=== PATIENT | male | born 1980 | race Two or more races ===

== ENCOUNTER 2023-09-25 21:34 | Emergency (ER) | payer OTHER, BC, SELFPAY ==
[2023-09-25] VITALS (17 sets, daily range): BP systolic 118–142; BP diastolic 63–92; PULSE 59–83; RESP 14–25; TEMP 36.8; O2SAT 93–99; BMI 30.7
--- NOTE | 2023-09-25 22:12 | ED_ITS ---
HPI - Chest Pain General Chief Complaint: Chest Pain Stated Complaint: Chest Pain Abdominal Pain Time Seen by Provider: 09/25/23 22:09 Source: patient Mode of arrival: walk-in Limitations: no limitations History of Present Illness HPI narrative: patient presents complaining of LUE/chest pain on and off for the past week. pain again tonight associated with diaphoresis and nausea. pain worsens when he sits up. Daily smoker Related Data Home Medications Medication Instructions Recorded Confirmed pantoprazole 40 mg tablet,delayed 40 mg PO DAILY 09/25/23 09/25/23 release Allergies Allergy/AdvReac Type Severity Reaction Status Date / Time No Known Drug Allergies Allergy Verified 09/25/23 21:45 Review of Systems ROS Status of ROS 10 or more systems reviewed and unremarkable except as noted in history and below [facility] Social History Smoking status: Current every day smoker Exam Constitutional Vital Signs, click to edit/add: Last Vital Signs Temp 98.2 F 09/25/23 21:37 Pulse 57 L 09/26/23 01:31 Resp 16 09/26/23 01:31 BP 137/78 09/26/23 01:31 Pulse Ox 99 09/26/23 01:31 O2 Del Method Room Air 09/25/23 21:37 Common normals: no apparent distress, average body habitus, oriented x3, no limitations, healthy appearing, alert and well nourished Eye Common normals: EOMs intact bilaterally and conjunctivae normal Neck & C-Spine Common normals: full ROM Respiratory Common normals: normal respiratory effort, no retractions, no use of accessory muscles and clear to auscultation bilaterally Cardio Common normals: regular rate, regular rhythm, S1 normal heart sound and S2 normal heart sound GI Other: mild left upper quad tenderness pain increases when he rises from supine to sitting position Extremity Common normals: normal to inspection and full ROM Neuro Common normals: oriented x3, CN's II-XII intact bilaterally, moves all extremities, no focal motor deficits and no sensory deficits noted Psych Appearance: grossly normal Course Vital Signs Vital signs: Vital Signs Temperature 98.2 F 09/25/23 21:37 Pulse Rate 80 09/25/23 21:37 Respiratory Rate 18 09/25/23 21:37 Blood Pressure 142/92 H 09/25/23 21:37 Pulse Oximetry 97 09/25/23 21:37 Oxygen Delivery Method Room Air 09/25/23 21:37 Temperature 98.2 F 09/25/23 21:37 Pulse Rate 57 L 09/26/23 01:31 Respiratory Rate 16 09/26/23 01:31 Blood Pressure 137/78 09/26/23 01:31 Pulse Oximetry 99 09/26/23 01:31 Oxygen Delivery Method Room Air 09/25/23 21:37 MDM - Chest Pain MDM Narrative Medical decision making narrative: patient presents complaining of recurrent episodes of LUQ/ left chest pain for the past week. Again today but this time associated with diaphoresis and nausea. Pain improved and finally resolved while in the department. Workup neg including neg d-dimer, serial troponin and CT abdomen. Patient informed of the plan for obs admission to continue workup as this could be his heart but he did not want to stay and wanted to follow up with his PCP Lab Data Labs: Lab Results 09/25/23 09/25/23 09/26/23 Range/Units 00:45 21:50 01:01 WBC 7.2 (4.0-11.0) 10^3/uL RBC 4.04 L (4.70-6.10) 10^6/uL Hgb 12.6 L (14.0-18.0) g/dL Hct 38.8 L (42.0-54.0) % MCV 96.0 H (80.0-94.0) fL MCH 31.2 (25.9-34.0) pg MCHC 32.5 (29.9-35.2) g/dL RDW 12.8 (11.0-15.0) % Plt Count 227 (150-450) 10^3/uL MPV 10.2 (9.5-13.5) fL Neut % (Auto) 69.3 (43.0-75.0) % Lymph % (Auto) 18.7 L (20.5-60.0) % Patrick % (Auto) 9.1 (1.7-12.0) % Eos % (Auto) 1.9 (0.9-7.0) % Baso % (Auto) 0.7 (0.2-2.0) % Neut # (Auto) 5.0 (1.4-6.5) 10^3/uL Lymph # (Auto) 1.3 (1.2-3.8) 10^3/uL Patrick # (Auto) 0.7 (0.3-0.8) 10^3/uL Eos # (Auto) 0.1 (0.0-0.7) 10^3/uL Baso # (Auto) 0.1 (0.0-0.1) 10^3/uL Abs Immat Gran (auto) 0.02 (0.00-0.03) 10^3/uL Imm/Tot Granulo (auto) 0.3 (0.0-0.5) % D-Dimer 0.21 (<=0.59) mg/L FEU Sodium 141 (136-145) mmol/L Potassium 3.6 (3.5-5.1) mmol/L Chloride 107 (98-107) mmol/L Carbon Dioxide 25.7 (21.0-32.0) mmol/L Anion Gap 11.9 BUN 19.0 H (7.0-18.0) mg/dL Creatinine 1.37 H (0.70-1.30) mg/dL Est GFR ( Amer) >60 (>=60) Est GFR (Non-Af Amer) 56 L (>=60) BUN/Creatinine Ratio 13.9 Glucose 99 (74-106) mg/dL Lactate 0.9 (0.4-2.0) mmol/L Calcium 8.7 (8.5-10.1) mg/dL Total Bilirubin 0.6 (0.2-1.0) mg/dL AST 31 (15-37) U/L ALT 40 (16-63) U/L Alkaline Phosphatase 65 (46-116) U/L Troponin I High Sens 7.5 8.2 (4.0-76.1) pg/mL Total Protein 7.0 (6.4-8.2) g/dL Albumin 3.8 (3.4-5.0) g/dL Globulin 3.2 g/dL Albumin/Globulin Ratio 1.2 Lipase 53.0 (16.0-77.0) U/L Urine Color Lt. yellow (YELLOW) Urine Clarity Clear (CLEAR) Urine pH 6.0 (5.0-9.0) Ur Specific [place] 1.015 (1.005-1.025) Urine Protein Negative (NEG/TRACE) mg/dL Urine Glucose (UA) Negative (NEGATIVE) mg/dL Urine Ketones Negative (NEGATIVE) mg/dL Urine Occult Blood Negative (NEGATIVE) Urine Nitrite Negative (NEGATIVE) Urine Bilirubin Negative (NEGATIVE) Urine Urobilinogen 1.0 (0.2-1.0) EU/dL Ur Leukocyte Esterase Negative (NEGATIVE) Discharge Plan Discharge Chief Complaint: Chest Pain Clinical Impression: Atypical chest pain, Abdominal pain Patient Disposition: Home, Self-Care Prescriptions / Home Meds: No Action pantoprazole 40 mg tablet,delayed release (DR/EC) 40 mg PO DAILY Instructions: Chest Pain (ED), Abdominal Pain (ED) Stand Alone Forms: Portal Instructions Referrals: Quinten Contreras MD [Primary Care Provider] - 1 week Discharge Date/Time: 09/26/23 01:42
[2023-09-25] MEDS: 0.9 % SODIUM CHLORIDE 1,000 ML 999 ML IV (22:23)
[2023-09-25 22:40] LABS: Basophils Absolute Auto 0.1 10^3/uL (0.0-0.1); Basophils Percent Auto 0.7 % (0.2-2.0); Eosinophils Absolute Auto 0.1 10^3/uL (0.0-0.7); Eosinophils Percent Auto 1.9 % (0.9-7.0); Hematocrit 38.8 % (42.0-54.0); Hemoglobin 12.6 g/dL (14.0-18.0); Immature Granulocytes Abs Auto 0.02 10^3/uL (0.00-0.03); Immature Granulocytes Pct Auto 0.3 % (0.0-0.5); Lymphocytes Absolute Auto 1.3 10^3/uL (1.2-3.8); Lymphocytes Percent Auto 18.7 % (20.5-60.0); Mean Corpuscular HGB Conc 32.5 g/dL (29.9-35.2); Mean Corpuscular Hemoglobin 31.2 pg (25.9-34.0); Mean Platelet Volume 10.2 fL (9.5-13.5); Monocytes Absolute Auto 0.7 10^3/uL (0.3-0.8); Monocytes Percent Auto 9.1 % (1.7-12.0); Neutrophils Percent Auto 69.3 % (43.0-75.0); Platelet Count 227 10^3/uL (150-450); Red Blood Count 4.04 10^6/uL (4.70-6.10); Red Cell Distribution Width 12.8 % (11.0-15.0); White Blood Count 7.2 10^3/uL (4.0-11.0)
[2023-09-25 22:59] LABS: Lactate/Lactic Acid 0.9 mmol/L (0.4-2.0)
[2023-09-25 23:02] LABS: D Dimer 0.21 mg/L FEU (<=0.59)
[2023-09-25 23:05] LABS: Alanine Aminotransferase 40 U/L (16-63); Albumin Globulin Ratio 1.2; Albumin Level 3.8 g/dL (3.4-5.0); Alkaline Phosphatase 65 U/L (46-116); Anion Gap 11.9; Aspartate Amino Transferase 31 U/L (15-37); BUN Creatinine Ratio 13.9; Bilirubin Total 0.6 mg/dL (0.2-1.0); Calcium 8.7 mg/dL (8.5-10.1); Carbon Dioxide 25.7 mmol/L (21.0-32.0); Chloride 107 mmol/L (98-107); Estimated GFR (African America >60 (>=60); Estimated GFR (Non-African Ame 56 (>=60); Globulin 3.2 g/dL; Glucose 99 mg/dL (74-106); Potassium 3.6 mmol/L (3.5-5.1); Sodium 141 mmol/L (136-145); Troponin I High Sensitivity 7.5 pg/mL (4.0-76.1)
--- NOTE | 2023-09-25 23:33 | CT_ITS ---
[address] [address] Patient Name: JONATHAN RODRIGUEZ MRN: [id number] date: 1980 Sex: M Assigned Patient Location: ER Current Patient Location: ER Accession/Order Number: [id number] Exam Date: 09/25/2023 23:59 Report Date: 09/26/2023 00:36 At the request of: THERESA BAINS Procedure: CT abdomen pelvis w con CT ABDOMEN AND PELVIS WITH CONTRAST: INDICATION: abdominal pain. COMPARISON: None. TECHNIQUE:Multiple thin section transaxial slices were acquired through the abdomen and pelvis with intravenous contrast. Coronal and sagittal reconstructed images were reviewed. Oral contrastWas not administered. FINDINGS: LOWER CHEST: There is a similar 5 mm size right middle lobe pulmonary nodule when compared to prior chest CT from February 2023. Dependent changes are present elsewhere in the lung bases. LIVER: The liver is unremarkable. GALLBLADDER AND BILIARY SYSTEM: No obvious ductal dilation. No calcified stones. SPLEEN: The spleen is unremarkable. PANCREAS: The pancreas is unremarkable. ADRENAL GLANDS: There is a left adrenal nodule measuring 1.1 cm. The right adrenal gland is within normal limits. KIDNEYS AND URETERS: There is no hydronephrosis of the kidneys.No obstructing urologic calcifications are present. VASCULATURE: Vascularity is unremarkable. PERITONEUM/RETROPERITONEUM: Peritoneum/retroperitoneum is unremarkable. LYMPH NODES: No suspicious lymphadenopathy. GASTROINTESTINAL TRACT: The bowel is normal in caliber.There is mild chronic colonic diverticulosis of the colon without acute inflammation.The appendix is visualized and is not inflamed. BLADDER: The urinary bladder is unremarkable. REPRODUCTIVE SYSTEM: Reproductive system is unremarkable. BODY WALL: There is a small fat-containing bilateral inguinal hernias. There is a very tiny fat-containing supraumbilical hernia. BONES: Bilateral L5 pars defects are present with minimal grade 1 anterolisthesis of L4-L5 and L5-S1. CT/CT abdomen pelvis w con IMPRESSION: 1. No acute inflammatory process or obstructive uropathy the abdomen or pelvis. 2. Indeterminate left adrenal nodule measuring 1.1 cm. This could be characterized with nonemergent adrenal protocol CT. Electronically authenticated by: SADIA MANCILLA Date: 09/26/2023 00:36
--- NOTE | 2023-09-25 23:37 | XR_ITS ---
The [address] [address] Patient Name: JONATHAN RODRIGUEZ MRN: [id number] date: 1980 Sex: M Assigned Patient Location: ER Current Patient Location: ER Accession/Order Number: [id number] Exam Date: 09/25/2023 23:55 Report Date: 09/26/2023 00:07 At the request of: THERESA BAINS Procedure: XR chest 2V EXAMINATION:XR chest 2V INDICATION:chest pain COMPARISON:01/15/2019 TECHNIQUE:Frontal and lateral projections of the chest are submitted. FINDINGS: The cardiomediastinal silhouette is not enlarged. The pulmonary vascularity is within normal limits. The lungs are clear based on chest radiography. There is no costophrenic angle blunting. XR/XR chest 2V IMPRESSION: Unremarkable plain film examination of the chest. Electronically authenticated by: SADIA MANCILLA Date: 09/26/2023 00:07
[2023-09-26] VITALS (10 sets, daily range): BP systolic 125–137; BP diastolic 78–81; PULSE 53–71; RESP 9–21; O2SAT 96–99
--- NOTE | 2023-09-26 00:14 | ECG_ITS ---
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
[2023-09-26 00:56] LABS: Bilirubin Urine NEGATIVE (NEGATIVE); Blood Urine NEGATIVE (NEGATIVE); Clarity Urine CLEAR (CLEAR); Color Urine LT. YELLOW (YELLOW); Glucose Urine UA NEGATIVE (NEGATIVE); Ketones Urine NEGATIVE (NEGATIVE); Leukocyte Esterase Urine NEGATIVE (NEGATIVE); Nitrite Urine NEGATIVE (NEGATIVE); Protein Urine NEGATIVE (NEG/TRACE); Specific Gravity Urine 1.015 (1.005-1.025); Urine Microscopic Indicated NO
[2023-09-26 01:25] LABS: Troponin I High Sensitivity 8.2 pg/mL (4.0-76.1)
== END 2023-09-26 01:42 | disposition home or self-care (01) ==
PROVIDERS: Emergency Provider Internal Medicine; PCP Family Medicine
DX: R07.89 Other chest pain (principal); R10.9 Unspecified abdominal pain; F17.210 Nicotine dependence, cigarettes, uncomplicated
CPT/HCPCS: 36415; 71046; 74177; 80053; 81003; 83605; 83690; 84484; 85025; 85378; 93005; 99285; Q9967

== ENCOUNTER 2023-10-15 15:07 | Outpatient (OUT) | payer OTHER, BC, SELFPAY ==
--- NOTE | 2023-10-15 15:10 | CT_ITS ---
[address] [address] Patient Name: JONATHAN RODRIGUEZ MRN: [id number] date: 1980 Sex: M Assigned Patient Location: CT Current Patient Location: CT Accession/Order Number: [id number] Exam Date: 10/15/2023 15:18 Report Date: 10/15/2023 15:45 At the request of: JEREMY MCGOWAN Procedure: CT chest wo con EXAM TYPE: CT chest wo con INDICATION: Pulmonary nodule COMPARISON: CT angiography of the chest 03/15/2023, CT the abdomen and pelvis 09/26/2023 TECHNIQUE: Noncontrast, Low dose, helical axial images of the chest were obtained, and thin section, axial MIP, and coronal and sagittal reformats were also submitted from the acquisition scanner under radiologist supervision. Each series was submitted in a lung algorithm. Dose reduction techniques were achieved by using automated exposure control and/or adjustment of mA and/or kV according to patient size and/or use of iterative reconstruction technique. FINDINGS: Please note that this examination was tailored for evaluation of pulmonary nodules, and therefore soft tissue detail is suboptimal. Visualized portions of the thyroid gland grossly unremarkable. Heart size within normal limits. No pericardial effusion. No aortic aneurysm. No mediastinal or axillary lymphadenopathy. No central endobronchial nodule. No lobar consolidation or pleural effusion. No pneumothorax. 4 mm right juxtapleural nodule (3, 44) 4 mm right middle lobe nodule (3, 53) Stable 1.1 cm left adrenal adenoma. Diffuse fatty infiltration of the liver. No acute fracture. CT/CT chest wo con IMPRESSION: 1. Lung RADS category 2: Benign. Annual LD CT scan of the chest recommended. 2. Benign left adrenal adenoma. 3. Hepatic steatosis. Electronically authenticated by: RUSLAN HERNÁNDEZ Date: 10/15/2023 15:45
--- OUTSIDE RECORDS SUMMARY | 2023-10-16 09:50 | XMS_ITS | CCD ---
Author Name Unknown Address [facility] [facility] [address] [place] [address] Organization [facility] Care Team Providers Care Spotlight Operator Name Role Phone MELLO, CHYNA Admitting Unavailable MELLO, CHYNA Attending Unavailable JANNA BEARDEN Referring Unavailable MARIAM LARSON Primary Care Unavailable MARSHA, DR MARIAM Cali Primary Care Unavailable JUAN M, DR LUNA Attending Unavailable JUAN M, DR LUNA Admitting Unavailable Encounters Encounter Date Encounter Type Care Provider Facility Start: 07-31-[address] MARIAM LARSON Facil ity:[facility] Start: 01-16-2019 End: 01-19-2019 Patient encounter procedure CHYNA MELLO Facility:[facility] Payers Date Payer Category Payer Unknown [id number] 1980 Unknown [id number] 1961 Self-pay Unknown [id number] Summary Purpose Family History No Family History Records FoundNo Family History Records Found Advance Directives No Advanced Directives Records FoundNo Advanced Directives Records Found Additional Source Comments (unrecognized sect ion and content) No Status Records FoundNo Status Records Found INFORMATION SOURCE (unrecogn ized section and content) DATE CREATED AUTHOR 01/20/2020 [facility] DATE CREATED AUTHOR AUTHOR'S ORGANIZ ATION 08/01/2022 [facility] FOR RECORDS PERTAINING TO PATIENTS WHO ARE OR HAVE BEEN ENROLLED IN A CHEMICAL DEPENDENCY/SUBSTANCEABUSE PROGRAM, SOME INFORMATION MAY BE OMITTED. This clinical summary was aggregated from multiple sources. Caution should be exercised in using it in the provision of clinical care. This summary normalizes information from multiple sources, and as a consequence, information in this document may materially change the coding, format and clinical context of patient data. In addition, data may be omitted in some cases. CLINICAL DECISIONS SHOULD BE BASED ON THE PRIMARY CLINICAL RECORDS. [facility]. provides no warranty or guarantee of the accuracy or completeness of information in this document.
== END 2023-10-15 15:08 | disposition home or self-care (01) ==
LOC: CT 15:07
PROVIDERS: PCP Family Medicine; Visit Provider Family Medicine
DX: R91.1 Solitary pulmonary nodule (principal); D35.02 Benign neoplasm of left adrenal gland; K76.0 Fatty (change of) liver, not elsewhere classified
CPT/HCPCS: 71250

== ENCOUNTER 2024-12-21 17:36 | Outpatient (OUT) | payer OTHER, BC, SELFPAY ==
--- OUTSIDE RECORDS SUMMARY | 2024-12-21 17:40 | XMS_ITS | CCD ---
Author Organization [facility] Care Team Providers Care Aircraft Charter Dispatcher Name Role Phone MELLO, CHYNA Admitting Unavailable [...] 01-19-2019 Patient encounter procedure CHYNA MELLO Facility:[facility] Payers Date Payer Category Payer Unknown [id number] 1980 Unknown [id number] 1961 Self-pay Unknown [id number] Summary Purpose Family History No Family History Records FoundNo Family History Records Found Advance Directives No Advanced Directives Records FoundNo Advanced Directives Records Found Additional Source Comments (unrecognized sect ion and content) No Status Records FoundNo Status Records Found INFORMATION SOURCE (unrecogn ized section and content) DATE CREATED AUTHOR 01/20/2020 [facility] DATE CREATED AUTHOR AUTHOR'S ORGANIZ ATION 08/01/2022 [facility] FOR RECORDS PERTAINING TO PATIENTS WHO ARE [...] BE BASED ON THE PRIMARY CLINICAL RECORDS. [facility]. provides no warranty or guarantee of the accuracy or completeness of information in this document.
--- NOTE | 2024-12-21 17:46 | XR_ITS ---
The [place] [id number] Patient Name: JONATHAN RODRIGUEZ MRN: [id number] date: 1980 Sex: M Assigned Patient Location: [facility] Current Patient Location: [facility] Accession/Order Number: [id number] Exam Date: 12/21/2024 19:25 Report Date: 12/21/2024 19:26 At the request of: JEREMY MCGOWAN MD Procedure: XR knee MIRTA 2V XR knee MIRTA 2V 12/21/2024 5:54 PM SIGNS AND SYMPTOMS: Chronic bilateral knee pain PROTOCOL: Frontal and lateral radiographs of the bilateral knees COMPARISON: None FINDINGS: There is narrowing of the medial weightbearing joint spaces bilaterally with spurring of the medial femoral condyle and medial tibial plateau, left greater than right. There is mild to moderate narrowing of the patellofemoral joint space with spurring at the superior pole the patella bilaterally, left greater than right. No joint effusion. No soft tissue swelling. No fracture. XR/XR knee MIRTA 2V IMPRESSION: Tricompartmental degenerative changes are noted greatest in the medial weightbearing compartments left greater than right. No acute bony injury. Impression dictated by: Domenic Miranda M.D.12/21/2024 7:26 PM Dictation Location: [place] [address] Electronically authenticated by: [id number] Y Date: 12/21/2024 19:26
== END 2024-12-21 17:37 | disposition home or self-care (01) ==
PROVIDERS: PCP Family Medicine; Visit Provider Family Medicine
DX: M25.561 Pain in right knee (principal); M25.562 Pain in left knee
CPT/HCPCS: 73560

== ENCOUNTER 2024-12-27 14:56 | Emergency (ER) | payer OTHER, BC, SELFPAY ==
[2024-12-27 15:00] VITALS: BP 135/80; PULSE 90; TEMP 37.6; O2SAT 97; BMI 27.9
--- NOTE | 2024-12-27 16:07 | ED.URI1 ---
Documented by User: MIRACLE Goldstein 12/27/24 18:45 HPI - URI/Sore Throat General Chief Complaint: Upper Respiratory Infection Stated Complaint: COUGH, SOB, CHEST CONGESTION Time Seen by Provider: 12/27/24 15:53 Source: patient Limitations: no limitations History of Present Illness HPI Narrative: 44-year-old male presents with a 1 day history of cough, congestion. Cough has been dry. He has had fevers, chills, body aches, mild sore throat, pleuritic chest discomfort, mild shortness of breath. He has a cigarette smoker, but has not had a cigarette since Friday. Quality:?As above Severity:?Moderate Timing:?As above, constant Context: Normal setting and activity? Modifying factors:?None Associated symptoms: as above Related Data Home Medications ?Medication ?Instructions ?Recorded ?Confirmed pantoprazole 40 mg tablet,delayed 40 mg PO DAILY 09/25/23 09/25/23 release Previous Rx's ?Medication ?Instructions ?Recorded albuterol sulfate 90 mcg/actuation 1 inh inhalation Q6H PRN shortness 12/27/24 aerosol inhaler of breath or wheezing #8.5 grams doxycycline hyclate 100 mg capsule 100 mg PO BID 7 days #14 caps 12/27/24 prednisone 50 mg tablet 50 mg PO DAILY 7 days #7 tabs 12/27/24 Allergies Allergy/AdvReac Type Severity Reaction Status Date / Time No Known Drug Allergies Allergy Verified 09/25/23 21:45 Review of Systems ROS Narrative Constitutional: +fever, chills, fatigue HENT: + Congestion, runny nose, sore throat. Denies ear pain, diff swallowing, voice change Eyes: Denies discharge, eye redness Respiratory: +cough, shortness of breath Cardiovascular: + pleuritic CP. Denies palpitations PFSH PFSH Social History Smoking status: Current every day smoker Little interest or pleasure in doing things: not at all Feeling down, depressed, or hopeless: not at all Exam Narrative Exam Narrative: Vital signs noted Nurses notes reviewed CONST:? Nontoxic, well appearing, well nourished, in no distress.? HENT: normocephalic, atraumatic.? Normal hearing.? Normal appearing ext ears, canals, TM's.? + nasal congestion, sniffling. No nasal discharge.? Moist mucous membranes, no increased oropharyngeal erythema, edema, exudate.? No trismus, maintaining own secretions. EYES: No injection, discharge NECK: supple, no lymphadenopathy CV: normal rate, regular rhythm, no murmur RESP: normal effort, speaking in complete sentences. Lung sounds reveal diffuse, intermittent, expiratory wheezing NEURO: A&Ox3, steady gait, normal station SKIN: intact, warm, dry, no pallor PSYCHIATRIC: normal mood, affect Constitutional Vital Signs, click to edit/add: Last Vital Signs Temp 99.7 F 12/27/24 15:00 Pulse 78 12/27/24 16:56 Resp 18 12/27/24 16:56 BP 135/80 12/27/24 15:00 Pulse Ox 96 12/27/24 16:56 O2 Del Method Room Air 12/27/24 16:56 Course Reevaluation(s) Reevaluation #1: On reevaluation does note some improvement. Discussed with patient results, plan, and disposition. He is agreeable. Time: 18:05 Vital Signs Vital signs: Vital Signs Temperature 99.7 F 12/27/24 15:00 Pulse Rate 90 12/27/24 15:00 Respiratory Rate 18 12/27/24 15:00 Blood Pressure 135/80 12/27/24 15:00 Pulse Oximetry 97 12/27/24 15:00 Oxygen Delivery Method Room Air 12/27/24 15:00 Temperature 99.7 F 12/27/24 15:00 Pulse Rate 78 12/27/24 16:56 Respiratory Rate 18 12/27/24 16:56 Blood Pressure 135/80 12/27/24 15:00 Pulse Oximetry 96 12/27/24 16:56 Oxygen Delivery Method Room Air 12/27/24 16:56 MDM - URI/Sore Throat MDM Narrative Medical decision making narrative: This is a pleasant 44-year-old male who presents to the emergency department for evaluation of cough, congestion, chest pain and shortness of breath. On arrival, afebrile, vital signs are stable Exam, nontoxic, well-appearing patient in no distress. No remarkable findings on HEENT exam other than nasal congestion. Heart regular rate and rhythm. Lung sounds revealed some diffuse, intermittent, expiratory wheezing. He tested negative for COVID, influenza, RSV Chest x-ray imaging, per radiologist reveals no acute findings. He was given breathing treatment, Motrin, Tylenol, prednisone and gained some improvement. Favor influenza-like illness, cough Pneumonia less likely based on imaging History and Record Review Additional records reviewed: No records Management Independent interpretation: Chest x-ray: No infiltrate, edema, or other acute abnormalities noted Diagnostic testing considered but not performed: Lab tests. Vitals were stable. Not hypoxic. Afebrile. Re-Evaluation See ED course Disposition ? The patient was discharged. Prescriptions sent to pharmacy: Doxycycline, albuterol inhaler, prednisone Plan: Patient will be discharged to home.? Condition at time of disposition: stable, improved.? Advised to follow up with primary provider. Advised to return for any worsening and/or development of new, concerning signs or symptoms PLEASE NOTE: Portions of the medical record may have been produced using electronic willow machine operator and may contain errors with respect to translation of words which may not have been identified prior to finalization of the chart. Medical Records Attestation: I reviewed the patient's medical records. Lab Data Attestation: I reviewed the patient's lab results. Labs: Lab Results 12/27/24 Range/Units 16:10 Influenza Type A Ag Negative Influenza Type B Ag Negative RSV Antigen Not detected (NOT DETECTE) SARS-CoV-2 Ag (CV2AG) Negative (NEGATIVE) Imaging Data Chest x-ray: Radiologist's impression: NO evidence of acute disease in the chest Smoking Cessation Time spent discussing smoking cessation with patient: 3 to 10 minutes Discharge Plan Discharge Chief Complaint: Upper Respiratory Infection Clinical Impression: Bronchitis, Influenza-like illness Patient Disposition: Home, Self-Care Time of Disposition Decision: 18:05 Condition: Good Mode of Transportation: Private Vehicle Prescriptions / Home Meds: New albuterol sulfate 90 mcg/actuation HFA aerosol inhaler 1 inh inhalation Q6H PRN (Reason: shortness of breath or wheezing) Qty: 8.5 0RF prednisone 50 mg tablet 50 mg PO DAILY 7 Days Qty: 7 0RF doxycycline hyclate 100 mg capsule 100 mg PO BID 7 Days Qty: 14 0RF No Action pantoprazole 40 mg tablet,delayed release (DR/EC) 40 mg PO DAILY Print Language: Yakut Instructions: Acute Bronchitis (ED) Additional Instructions: Take 600 mg of over the counter ibuprofen (3 tabs) as needed for pain or fever. or Take 650 mg - 1000 mg of over the counter Tylenol as needed for pain or fever. Referrals: Quinten Contreras MD [Primary Care Provider] - 1 week Discharge Date/Time: 12/27/24 18:31 Documented by User: Chato Brady MD 12/27/24 20:00 HPI - URI/Sore Throat General Chief Complaint: Upper Respiratory Infection Stated Complaint: COUGH, SOB, CHEST CONGESTION Time Seen by Provider: 12/27/24 15:53 Related Data Home Medications ?Medication ?Instructions ?Recorded ?Confirmed pantoprazole 40 mg tablet,delayed 40 mg PO DAILY 09/25/23 09/25/23 release Previous Rx's ?Medication ?Instructions ?Recorded albuterol sulfate 90 mcg/actuation 1 inh inhalation Q6H PRN shortness 12/27/24 aerosol inhaler of breath or wheezing #8.5 grams doxycycline hyclate 100 mg capsule 100 mg PO BID 7 days #14 caps 12/27/24 prednisone 50 mg tablet 50 mg PO DAILY 7 days #7 tabs 12/27/24 Allergies Allergy/AdvReac Type Severity Reaction Status Date / Time No Known Drug Allergies Allergy Verified 09/25/23 21:45 PFSH PFSH Social History Smoking status: Current every day smoker Little interest or pleasure in doing things: not at all Feeling down, depressed, or hopeless: not at all Exam Constitutional Vital Signs, click to edit/add: Last Vital Signs Temp 99.7 F 12/27/24 15:00 Pulse 78 12/27/24 16:56 Resp 18 12/27/24 16:56 BP 135/80 12/27/24 15:00 Pulse Ox 96 12/27/24 16:56 O2 Del Method Room Air 12/27/24 16:56 Course Vital Signs Vital signs: Vital Signs Temperature 99.7 F 12/27/24 15:00 Pulse Rate 90 12/27/24 15:00 Respiratory Rate 18 12/27/24 15:00 Blood Pressure 135/80 12/27/24 15:00 Pulse Oximetry 97 12/27/24 15:00 Oxygen Delivery Method Room Air 12/27/24 15:00 Temperature 99.7 F 12/27/24 15:00 Pulse Rate 78 12/27/24 16:56 Respiratory Rate 18 12/27/24 16:56 Blood Pressure 135/80 12/27/24 15:00 Pulse Oximetry 96 12/27/24 16:56 Oxygen Delivery Method Room Air 12/27/24 16:56 MDM - URI/Sore Throat MDM Narrative Medical decision making narrative: This is a pleasant 44-year-old male who presents to the emergency department for evaluation of cough, congestion, chest pain and shortness of breath. On arrival, afebrile, vital signs are stable Exam, nontoxic, well-appearing patient in no distress. No remarkable findings on HEENT exam other than nasal congestion. Heart regular rate and rhythm. Lung sounds revealed some diffuse, intermittent, expiratory wheezing. He tested negative for COVID, influenza, RSV Chest x-ray imaging, per radiologist reveals no acute findings. He was given breathing treatment, Motrin, Tylenol, prednisone and gained some improvement. Favor influenza-like illness, cough Pneumonia less likely based on imaging History and Record Review Additional records reviewed: No records Management Independent interpretation: Chest x-ray: No infiltrate, edema, or other acute abnormalities noted Diagnostic testing considered but not performed: Lab tests. Vitals were stable. Not hypoxic. Afebrile. Re-Evaluation See ED course Disposition ? The patient was discharged. Prescriptions sent to pharmacy: Doxycycline, albuterol inhaler, prednisone Plan: Patient will be discharged to home.? Condition at time of disposition: stable, improved.? Advised to follow up with primary provider. Advised to return for any worsening and/or development of new, concerning signs or symptoms PLEASE NOTE: Portions of the medical record may have been produced using electronic willow machine operator and may contain errors with respect to translation of words which may not have been identified prior to finalization of the chart. I, Dr Brady, have reviewed the above progress note and course of action in the ER; agree with the above. I have personally gone over history and physical, and discussed disposition and treatment plan with the PA. Lab Data Labs: Lab Results 12/27/24 Range/Units 16:10 Influenza Type A Ag Negative Influenza Type B Ag Negative RSV Antigen Not detected (NOT DETECTE) SARS-CoV-2 Ag (CV2AG) Negative (NEGATIVE) Discharge Plan Discharge Chief Complaint: Upper Respiratory Infection Clinical Impression: Bronchitis, Influenza-like illness Patient Disposition: Home, Self-Care Time of Disposition Decision: 18:05 Condition: Good Mode of Transportation: Private Vehicle Prescriptions / Home Meds: New albuterol sulfate 90 mcg/actuation HFA aerosol inhaler 1 inh inhalation Q6H PRN (Reason: shortness of breath or wheezing) Qty: 8.5 0RF prednisone 50 mg tablet 50 mg PO DAILY 7 Days Qty: 7 0RF doxycycline hyclate 100 mg capsule 100 mg PO BID 7 Days Qty: 14 0RF No Action pantoprazole 40 mg tablet,delayed release (DR/EC) 40 mg PO DAILY Print Language: Yakut Instructions: Acute Bronchitis (ED) Additional Instructions: Take 600 mg of over the counter ibuprofen (3 tabs) as needed for pain or fever. or Take 650 mg - 1000 mg of over the counter Tylenol as needed for pain or fever. Referrals: Quinten Contreras MD [Primary Care Provider] - 1 week Discharge Date/Time: 12/27/24 18:31
[2024-12-27 16:28] LABS: Influenza Virus A Antigen Negative; Influenza Virus B Antigen Negative; Internal Control Within Normal Limits; Respiratory Syncytial Virus Not Detected (NOT DETECTE); SARS-CoV-2 Ag NEGATIVE (NEGATIVE)
[2024-12-27 16:29] LABS: Internal Control Within Normal Limits
[2024-12-27] MEDS: IPRATROPIUM/ALBUTEROL SULFATE 3 ML AMPUL.NEB IH (16:55)
[2024-12-27 16:56] VITALS: PULSE 78; O2SAT 96
[2024-12-27] MEDS: KETOROLAC TROMETHAMINE 60 MG/2 ML VIAL IM (17:34)
[2024-12-27] MEDS: DOXYCYCLINE MONOHYDRATE 100 MG CAPSULE PO (17:35)
[2024-12-27] MEDS: PREDNISONE 20 MG TABLET 60 MG PO (17:35)
[2024-12-27] MEDS: ACETAMINOPHEN 325 MG TABLET 975 MG PO (17:35)
== END 2024-12-27 18:31 | disposition home or self-care (01) ==
PROVIDERS: Physician Assistant; Emergency Provider Emergency Medicine; PCP Family Medicine
DX: J40 Bronchitis, not specified as acute or chronic (principal); F17.210 Nicotine dependence, cigarettes, uncomplicated; R05.9 Cough, unspecified; R06.02 Shortness of breath; R09.89 Other specified symptoms and signs involving the circulatory and respiratory systems
CPT/HCPCS: 71046; 87420; 87804; 87811; 94640; 96372; 99285; J1885; J7512

== ENCOUNTER 2025-06-14 12:08 | Outpatient (OUT) | payer OTHER, BC, SELFPAY ==
[2025-06-14 12:53] LABS: Hematocrit 39.8 % (42.0-54.0); Hemoglobin 13.5 g/dL (14.0-18.0); Immature Granulocytes Abs Auto 0.02 10^3/uL (0.00-0.03); Immature Granulocytes Pct Auto 0.3 % (0.0-0.5); Lymphocytes Absolute Auto 1.0 10^3/uL (1.2-3.8); Mean Corpuscular HGB Conc 33.9 g/dL (29.9-35.2); Mean Corpuscular Hemoglobin 32.2 pg (25.9-34.0); Mean Corpuscular Volume 95.0 fL (80.0-94.0); Platelet Count 215 10^3/uL (150-450); Red Blood Count 4.19 10^6/uL (4.70-6.10); White Blood Count 6.5 10^3/uL (4.0-11.0)
[2025-06-14 14:19] LABS: Alanine Aminotransferase 66 U/L (16-63); Albumin Globulin Ratio 1.3; Albumin Level 3.8 g/dL (3.4-5.0); Alkaline Phosphatase 62 U/L (46-116); Amylase 47 U/L (25-115); Anion Gap 9.1; Aspartate Amino Transferase 29 U/L (15-37); Blood Urea Nitrogen 17.0 mg/dL (7.0-18.0); Calcium 8.6 mg/dL (8.5-10.1); Carbon Dioxide 26.5 mmol/L (21.0-32.0); Chloride 109 mmol/L (98-107); Estimated GFR (African America >60 (>=60 mL/min/1.73m^2); Estimated GFR (Non-African Ame >60 (>=60 mL/min/1.73m^2); Globulin 3.0 g/dL; Glucose 72 mg/dL (74-106); Lipase 54.0 U/L (16.0-77.0); Potassium 3.6 mmol/L (3.5-5.1); Sodium 141 mmol/L (136-145); Total Protein 6.8 g/dL (6.4-8.2)
--- OUTSIDE RECORDS SUMMARY | 2025-06-14 14:51 | XMS_ITS | CCD ---
Author Organization [facility] Inform ion Partnership [facility] Care Team Providers Care Mining Teacher Name Role Phone MELLO, CHYNA Admitting Unavailable [...] End: 01-19-2019 Patient encounter procedure CHYNA MELLO Facility:[facility] Payers Date Payer Category Payer Unknown [id number] 1980 Unknown [id number] 1961 Self-pay Unknown [id number] Summary Purpose Family History No Family History Records FoundNo Family History Records Found Advance Directives No Advanced Directives Records FoundNo Advanced Directives Records Found Additional Source Comments (unrecognized sect ion and content) No Status Records FoundNo Status Records Found INFORMATION SOURCE (unrecogn ized section and content) DATE CREATED AUTHOR 01/20/2020 [facility] DATE CREATED AUTHOR AUTHOR'S ORGANIZ ATION 08/01/2022 [facility] FOR RECORDS PERTAINING TO PATIENTS [...] ON THE PRIMARY CLINICAL RECORDS. [facility] [facility]. provides no warranty or guarantee of the accuracy or completeness of information in this document.
== END 2025-06-14 12:09 | disposition home or self-care (01) ==
LOC: LAB 12:09
PROVIDERS: PCP Family Medicine; Visit Provider Family Medicine
DX: R10.12 Left upper quadrant pain (principal)
CPT/HCPCS: 36415; 80053; 82150; 83690; 84484; 85025